=== PATIENT | female | born 1995 | race African-American/Black ===

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

== ENCOUNTER 2019-11-18 20:30 | Emergency (ER) | payer SELFPAY ==
[~2019-11-18] VITALS: Ht 180.3 cm; Wt 65.8 kg
[2019-11-18 21:03] LABS: BILIRUBIN,URINE NEGATIVE (NEG); CLARITY,URINE CLOUDY; COLOR,URINE YELLOW; NITRITE,URINE NEGATIVE (NEG); PROTEIN,URINE NEGATIVE (NEG-TRACE); UROBILINOGEN,URINE 0.2 mg/dL (0.2 mg/dL)
[2019-11-18 21:09] LABS: SQUAMOUS EPITHELIAL CELL,UR MANY /LPF
[2019-11-18 21:10] LABS: BACTERIA,URINE MOD /HPF (0-FEW); RBC,URINE 0 /HPF (0-2); WBC,URINE TNTC /HPF (0-4)
[2019-11-18 21:12] LABS: TRICHOMONAS,URINE PRESENT
[2019-11-18 21:15] LABS: INFLUENZA A PATIENT NEGATIVE (NEGATIVE); INFLUENZA B PATIENT NEGATIVE (NEGATIVE)
[2019-11-18] MEDS ORDERED: CEPH500T PO (21:42)
--- NOTE | 2019-11-18 21:42 | PHYS DOC ---
Past Medical History Past Medical History: No Pertinent History Past Surgical History: Other Additional Past Surgical Histo: FALOPIAN TUBE REMOVED Alcohol Use: Occasionally Drug Use: Marijuana Adult General Chief Complaint Chief Complaint: FLU SYMPTOM HPI HPI Patient is a 24 year old female 2 para 1 currently 13 weeks presenting to the ED today complaining of nausea, vomiting, diarrhea, chills and body aches, symptoms began today. Patient denies any hematemesis or melena. Denies any vaginal bleeding. She reports she recently moved to [place] and does not have an ASSISTANT SHIFT SUPERVISOR. Review of Systems Review of Systems Constitutional: Denies fever or chills [] Eyes: Denies change in visual acuity, redness, or eye pain [] HENT: Denies nasal congestion or sore throat [] Respiratory: Denies cough or shortness of breath [] Cardiovascular: No additional information not addressed in HPI [] GI: Report , nausea and vomiting, diarrhea. Denies abdominal pain, bloody stools diarrhea [] : Denies dysuria or hematuria [] Musculoskeletal: Denies back pain or joint pain [] Integument: Denies rash or skin lesions [] Neurologic: Denies headache, focal weakness or sensory changes [] All other systems were reviewed and found to be within normal limits, except as documented in this note. Current Medications Current Medications Current Medications Medications (Trade) Dose Ordered Sig/Moira Start Time Stop Time Status Last Admin Dose Admin Acetaminophen (Tylenol) 1,000 mg 1X ONCE 11/18/19 22:00 11/18/19 22:01 Azithromycin (Zithromax) 1,000 mg 1X ONCE 11/18/19 22:00 11/18/19 22:01 Ceftriaxone Sodium (Rocephin Im) 250 mg 1X ONCE 11/18/19 22:00 11/18/19 22:01 Metronidazole (Flagyl) 2,000 mg 1X ONCE 11/18/19 22:00 11/18/19 22:01 Promethazine HCl (Phenergan) 12.5 mg 1X ONCE 11/18/19 22:00 11/18/19 22:01 Allergies Allergies Allergies Coded Allergies Type Severity Reaction Last Updated Verified No Known Drug Allergies 11/12/16 No Physical Exam Physical Exam Constitutional: Well developed, well nourished, no acute distress, non-toxic appearance. [] HENT: Normocephalic, atraumatic, bilateral external ears normal, oropharynx moist, no oral exudates, nose normal. [] Eyes: PERRLA, EOMI, conjunctiva normal, no discharge. [] Neck: Normal range of motion, no tenderness, supple, no stridor. [] Cardiovascular:Heart rate regular rhythm, no murmur [] Lungs & Thorax: Bilateral breath sounds clear to auscultation [] Abdomen: Bowel sounds normal, soft, no tenderness, no masses, no pulsatile masses. [] Skin: Warm, dry, no erythema, no rash. [] Back: No tenderness, no CVA tenderness. [] Extremities: No tenderness, no cyanosis, no clubbing, ROM intact, no edema. [] Neurologic: Alert and oriented X 3, normal motor function, normal sensory function, no focal deficits noted. [] Psychologic: Flat affect, has been on the phone complaining about her symptoms Current Patient Data Vital Signs Vital Signs Date Time Temp Pulse Resp B/P (MAP) Pulse Ox O2 Delivery O2 Flow Rate FiO2 11/18/19 20:39 97.4 118 24 152/80 (104) 97 Room Air 97.4 Lab Values Laboratory Tests Test 11/18/19 20:46 11/18/19 20:49 Urine Collection Type Unknown Urine Color Yellow Urine Clarity Cloudy Urine pH 6.0 Urine Specific Tiller >=1.030 Urine Protein Negative mg/dL (NEG-TRACE) Urine Glucose (UA) Negative mg/dL (NEG) Urine Ketones (Stick) Trace mg/dL (NEG) Urine Blood Negative (NEG) Urine Nitrite Negative (NEG) Urine Bilirubin Negative (NEG) Urine Urobilinogen Dipstick 0.2 mg/dL (0.2 mg/dL) Urine Leukocyte Esterase Large (NEG) Urine RBC 0 /HPF (0-2) Urine WBC Tntc /HPF (0-4) Urine Squamous Epithelial Cells Many /LPF Urine Bacteria Mod /HPF (0-FEW) Urine Mucus Marked /LPF Urine Trichomonas Present Influenza Type A Antigen Negative (NEGATIVE) Influenza Type B Antigen Negative (NEGATIVE) EKG EKG [] Radiology/Procedures Radiology/Procedures [] Course & Med Decision Making Course & Med Decision Making Pertinent Labs and Imaging studies reviewed. (See chart for details) This is a 24-year-old female patient 2 para 1 currently 13 weeks presenting with nausea vomiting diarrhea and body aches chills that began today. Patient is afebrile. Negative influenza A or B. Urine analysis is positive for Trichomonas and urinary tract infection. She was given the standard STD treatment in the ED, given promethazine for her nausea and vomiting, discharged with cephalexin and Compazine. Follow-up with an ASSISTANT SHIFT SUPERVISOR we provided. Amaury Disclaimer Dragon Disclaimer This electronic medical record was generated, in whole or in part, using a voice recognition dictation system. Departure Departure Impression: Primary Impression: Urinary tract infection during Additional Impressions: Trichomonas vaginitis Vomiting and diarrhea Disposition: HOME, SELF-CARE Condition: STABLE Referrals: NO PCP (PCP) WILLIAM GAMA MD Follow up in the course of next week Patient Instructions: Diarrhea, [id number], Nausea and Vomiting, [id number], - Urinary Tract Infection, Trichomoniasis Additional Instructions: You were evaluated in the ER, you tested positive for Trichomonas. You are also and have urinary tract infection. Trichomonas is a sexually transmitted disease. You were treated in the emergency room, you must contact all your sex partners and let them know you have Trichomonas and ask them to seek treatment too. You can take Tylenol as needed for pain. You must complete your antibiotics for UTI. We provided you an ASSISTANT SHIFT SUPERVISOR to follow-up for your . Scripts Prochlorperazine Maleate (Compazine) 10 Mg Tablet 1 TAB PO Q6HRS for 7 Days, #28 TAB 0 Refills Prov: JEANETTE BRAN APRN 11/18/19 Cephalexin (CEPHALEXIN) 500 Mg Tablet 1 TAB PO BID, #14 TAB Prov: JEANETTE BRAN APRN 11/18/19 Problem Qualifiers Primary Impression: Urinary tract infection during Trimester: second trimester Qualified Codes: O23.42 - Unspecified infection of urinary tract in , second trimester JEANETTE BRAN APRN Nov 18, 2019 21:42
[2019-11-18] MEDS ORDERED: PROC10TA57 PO (21:43)
[2019-11-18 21:58] VITALS: BP 150/84
[2019-11-18] MEDS ORDERED: PROMETHAZINE 12.5 MG TABLET. PO ONE (22:00)
[2019-11-18] MEDS ORDERED: metroNIDAZOLE 500 MG TABLET PO ONE (22:00)
[2019-11-18] MEDS ORDERED: AZITHROMYCIN 250 MG TABLET. PO ONE (22:00)
[2019-11-18] MEDS ORDERED: cefTRIAXone IM 250 MG VIAL IM ONE (22:00)
[2019-11-18] MEDS ORDERED: ACETAMINOPHEN 500 MG TABLET PO ONE (22:00)
== END 2019-11-18 22:00 | disposition home or self-care (01) ==
LOC: ER 20:30
DX: O23.41 Unspecified infection of urinary tract in pregnancy, first trimester (principal); O98.311 Other infections with a predominantly sexual mode of transmission complicating pregnancy, first trimester; A59.01 Trichomonal vulvovaginitis; O21.9 Vomiting of pregnancy, unspecified; F12.90 Cannabis use, unspecified, uncomplicated; Z98.890 Other specified postprocedural states; Z3A.13 13 weeks gestation of pregnancy
CPT/HCPCS: 81001; 87804; 96372; 99284; J0696; Q0144; Q0169

== ENCOUNTER 2020-05-13 22:27 | Emergency (ER) | payer SELFPAY ==
[~2020-05-13] VITALS: Ht 180.3 cm; Wt 69.5 kg
[~2020-05-13 22:27] MED LIST: CEPH500T PO; PROC10TA57 PO
[2020-05-13] MEDS ORDERED: IV NORMAL SALINE 1000ML BAG 1,000 ML IV ONE (23:00)
[2020-05-13] MEDS ORDERED: KETOROLAC 30 MG/ML VIAL. IVP ONE (23:00)
--- NOTE | 2020-05-13 23:05 | PHYS DOC ---
Past Medical History Past Medical History: No Pertinent History (NASH NUNEZ APRN) Past Surgical History: Appendectomy, Other Additional Past Surgical Histo: FALOPIAN TUBE REMOVED (NASH NUNEZ APRN) Smoking Status: Never Smoker Alcohol Use: Occasionally Drug Use: Marijuana (NASH NUNEZ APRN) General Adult EDM: Chief Complaint: ABDOMINAL PAIN HPI: HPI: Patient is a 24 year old female patient who presents with right lower quadrant pain. Patient states that she recently had a miscarriage, 05/01/20 after 7-week . States this been found when she was at [facility] the day, complaints of abdominal pain. States she was started on antibiotics for a UTI at that time, and continued to have some discomfort. States today she had gone to [facility], had ultrasound performed, noting a large blood clot in her uterus, as well as a enlarged ovarian cyst. States she had again gotten a prescription for Macrobid for UTI, and also had received a shot of Rocephin there. States she is continued some discomfort, with a fever tonight, and is concerned came to the ER. Denies any nausea, vomiting, does states she has been have 2 bowel movements than normal recently, however she does report bowel movement today patient A1 SA1 from November 2019. Denies concern for STD. Denies vaginal discharge. States she has had a small mount of vaginal bleeding today (NASH NUNEZ APRN) Review of Systems: Review of Systems: Constitutional: Denies chills, states fever tonight.] Eyes: Denies change in visual acuity. [] HENT: Denies nasal congestion or sore throat. [] Respiratory: Denies cough or shortness of breath. [] Cardiovascular: Denies chest pain or edema. [] GI: Denies nausea, vomiting, bloody stools or diarrhea. Reports abdominal pain, right lower quadrant worse. [] : Reports dysuria, burning with urination. [] Musculoskeletal: Denies back pain or joint pain. [] Integument: Denies rash. [] Neurologic: Denies headache, focal weakness or sensory changes. [] Endocrine: Denies polyuria or polydipsia. [] Lymphatic: Denies swollen glands. [] Psychiatric: Denies depression or anxiety. [] (NASH NUNEZ APRN) Heart Score: Risk Factors: Risk Factors: DM, Current or recent (<one month) smoker, HTN, HLP, family history of CAD, obesity. Risk Scores: Score 0 - 3: 2.5% MACE over next 6 weeks - Discharge Home Score 4 - 6: 20.3% MACE over next 6 weeks - Admit for Clinical Observation Score 7 - 10: 72.7% MACE over next 6 weeks - Early Invasive Strategies (NASH NUNEZ APRN) Allergies: Allergies: Allergies Coded Allergies Type Severity Reaction Last Updated Verified No Known Drug Allergies 11/12/16 No (NASH NUNEZ APRN) Physical Exam: PE: Constitutional: Well developed, well nourished, no acute distress, non-toxic ap pearance. [] Eyes: PERRLA, EOMI, conjunctiva normal, no discharge. [] Neck: Normal range of motion, no tenderness, supple, no stridor. [] Cardiovascular:Heart rate regular rhythm, no murmur [] Lungs & Thorax: Bilateral breath sounds clear to auscultation [] Abdomen: Bowel sounds normal, soft, tenderness to RLQ, no masses, no pulsatile masses. negative heel-jar test. Negative Rovsig. [] Skin: Warm, dry, no erythema, no rash. [] Back: No tenderness, no CVA tenderness. [] Extremities: No tenderness, no cyanosis, no clubbing, ROM intact, no edema. [] Neurologic: Alert and oriented X 3, normal motor function, normal sensory function, no focal deficits noted. [] Psychologic: Affect normal, judgement normal, mood normal. [] (NASH NUNEZ APRN) Current Patient Data: Vital Signs: Vital Signs Date Time Temp Pulse Resp B/P (MAP) Pulse Ox O2 Delivery O2 Flow Rate FiO2 05/13/20 22:40 100.5 100 20 135/68 (90) 99 Room Air 100.5 (NASH NUNEZ APRN) EKG: EKG: [] (NASH NUNEZ APRN) Radiology/Procedures: Radiology/Procedures: [] (NASH NUNEZ APRN) Course & Med Decision Making: Course & Med Decision Making Pertinent Labs and Imaging studies reviewed. (See chart for details) Following Toradol, patient reports she is pain free. [] After reviewing labs with findings, consideration for PID due to unilateral pain, fever, STD noted on lab testing. Will treat for her Trich which she prefers to do at home after she has eaten. Also provide prescription for doxycycline. She is to hold her Macrobid which was prescribed earlier and not fill that prescription. Patient agreed with this plan of care Care Transferred to Dr Sanchez @ 0028 awaiting imaging results (NASH NUNEZ APRN) Course & Med Decision Making Discussed CT imaging with patient. Patient advised me that she presents to ER for continues pain. Patient with recent miscarriage. Patient had 2 [facility] pelvis today--- [facility] and 2nd at [facility]. Patient with be Rx pain medication and instructions [facility]. (NARA SANCHEZ I DO) Dragon Disclaimer: Amaury Disclaimer: This electronic medical record was generated, in whole or in part, using a voice recognition dictation system. (NASH NUNEZ APRN) Departure Departure Impression: Primary Impression: Trichomonas vaginitis Additional Impressions: Pelvic inflammatory disease, acute Pelvic pain Disposition: 01 HOME, SELF-CARE Referrals: NO PCP (PCP) Patient Instructions: Trichomoniasis Additional Instructions: As we discussed, continue to take Tylenol or ibuprofen for your discomfort. You may take 600 to 800 mg of ibuprofen every 8 hours, with your next dose at 6 AM tomorrow. You may take Tylenol, 650 to 1000 mg, every 6 hours as well. Make sure you are using condoms for the next 2 weeks. Make sure your partner knows that they need to be treated for trichomoniasis before further unprotected inte rcourse. Your partner can contact the health department for this treatment, letting them know that they have had an exposure. As we discussed, take the 4 pills at the same time after eating some food to decrease the chance that it will upset your stomach. The other medication we are prescribing you is another antibiotic, take it twice a day, for the entire 10 days, Even if you start to feel better. Do not start the prescription from [facility], as this medication will not help your conditions today. Scripts Metronidazole (METRONIDAZOLE) 500 Mg Tablet 500 MG PO ONCE, #4 TAB Take all 4 pills at the same time, after a meal. Avoid Alcohol for 48 hours after taking the medication Prov: NASH NUNEZ APRN 05/14/20 Doxycycline Hyclate (DOXYCYCLINE HYCLATE) 100 Mg Capsule 1 CAP PO BID, #20 CAP Prov: NASH NUNEZ APRN 05/14/20 Justicifation of Admission Dx: Justifications for Admission: Justification of Admission Dx: N/A (NASH NUNEZ APRN) NASH NUNEZ APRN May 13, 2020 23:05 NARA SANCHEZ DO May 14, 2020 01:34
[2020-05-13 23:16] LABS: BASO % 0 % (0-3); EOS # 0.1 x10^3/uL (0.0-0.7); EOS % 1 % (0-3); HEMATOCRIT 31.5 % (36.0-47.0); HEMOGLOBIN 10.7 g/dL (12.0-15.5); LYMPH # 1.1 x10^3/uL (1.0-4.8); LYMPH % 8 % (24-48); MEAN CORPUSCULAR HEMOGLOBIN 27 pg (25-35); MEAN CORPUSCULAR HGB CONC 34 g/dL (31-37); MEAN CORPUSCULAR VOLUME 80 fL (79-100); MONO # 1.2 x10^3/uL (0.0-1.1); MONO % 9 % (0-9); NEUT % 82 % (31-73); PLATELET COUNT 305 x10^3/uL (140-400); RED BLOOD COUNT 3.95 x10^6/uL (3.50-5.40); RED CELL DISTRIBUTION WIDTH 13.1 % (11.5-14.5); WHITE BLOOD COUNT 13.3 x10^3/uL (4.0-11.0)
[2020-05-13 23:25] LABS: CALCIUM 8.5 mg/dL (8.5-10.1); CREATININE 1.2 mg/dL (0.6-1.0); POTASSIUM 3.3 mmol/L (3.5-5.1)
[2020-05-13] MEDS ORDERED: CONTRAST GIVEN. MC PRN (23:30)
[2020-05-13] MEDS ORDERED: IOHEXOL 300 MG/ML 100ML VIAL. IV ONE (23:30)
[2020-05-13 23:31] LABS: ALBUMIN 3.1 g/dL (3.4-5.0); ALBUMIN/GLOBULIN RATIO 0.8 (1.0-1.7); TOTAL BILIRUBIN 0.7 mg/dL (0.2-1.0); TOTAL PROTEIN 7.2 g/dL (6.4-8.2)
[2020-05-13 23:32] LABS: BILIRUBIN,URINE SMALL (NEG); CLARITY,URINE CLEAR; COLOR,URINE YELLOW; NITRITE,URINE NEGATIVE (NEG); PH,URINE 6.5 (<5.0-8.0); PROTEIN,URINE 30 mg/dL (NEG-TRACE)
[2020-05-13 23:37] LABS: SQUAMOUS EPITHELIAL CELL,UR MANY /LPF
[2020-05-13 23:38] LABS: TRICHOMONAS,URINE PRESENT; WBC,URINE >40 /HPF (0-4)
[2020-05-13 23:39] LABS: BACTERIA,URINE MANY /HPF (0-FEW)
[2020-05-14] MEDS ORDERED: METR-34 PO (00:27)
[2020-05-14] MEDS ORDERED: DOXY100C2 PO (00:27)
--- NOTE | 2020-05-14 00:58 | RAD ---
CT abdomen pelvis with contrast. HISTORY: Right lower quadrant pain, fever CT scan the abdomen pelvis was done using 75 mL's Omnipaque 300 contrast. Lung bases are clear. There is no effusion. A liver lesion is not identified. Spleen and adrenal glands are normal. A pancreatic lesion is not identified. There is no mass or hydronephrosis in the kidneys. Gallbladder is contracted. Bowel pattern is unremarkable. There is possible fluid collection in the right pelvis. A hydrosalpinx is possible. There are unopacified bowel loops which make evaluation more difficult. Left ovary appears normal. Prominent ovarian cyst is possible. IMPRESSION: 1. Right adnexal hypodense collection possible hydrosalpinx, dilated unopacified bowel loop is possible, an irregular ovarian cyst is possible. 2. No other abdominal or pelvic mass noted PQRS Compliance Statement: One or more of the following individualized dose reduction techniques were utilized for this examination: 1. Automated exposure control 2. Adjustment of the mA and/or kV according to patient size 3. Use of iterative reconstruction technique Electronically signed by: Juan David Singleton MD (05/14/2020 12:55 AM) [id number]
[2020-05-14 01:09] VITALS: BP 102/53
[2020-05-14] MEDS ORDERED: TRAM-48 PO (01:35)
== END 2020-05-14 01:30 | disposition home or self-care (01) ==
LOC: ER 22:27
DX: A59.01 Trichomonal vulvovaginitis (principal); N73.9 Female pelvic inflammatory disease, unspecified; R10.2 Pelvic and perineal pain; R50.9 Fever, unspecified; F12.90 Cannabis use, unspecified, uncomplicated; Z90.89 Acquired absence of other organs; Z98.890 Other specified postprocedural states
CPT/HCPCS: 36415; 74177; 80053; 81001; 83605; 85025; 87086; 96374; 99285; J1885; J7030; Q9967

== ENCOUNTER 2020-05-14 11:33 | Inpatient (IN) | payer SELFPAY ==
[~2020-05-14] VITALS: Ht 180.3 cm; Wt 69.5 kg
[~2020-05-14 11:33] MED LIST changes: +DOXY100C2 PO; +METR-34 PO; +TRAM-48 PO
[2020-05-14] MEDS ORDERED: ACETAMINOPHEN 500 MG TABLET PO ONE (12:30)
[2020-05-14] MEDS ORDERED: KETOROLAC 30 MG/ML VIAL. IVP ONE (12:30)
[2020-05-14] MEDS ORDERED: IV NORMAL SALINE 1000ML BAG 1,000 ML IV ONE ×2 (12:30→13:45)
[2020-05-14] MEDS ORDERED: cefTRIAXone IV Push 1 GM VIAL. IVP ONE (12:30)
--- NOTE | 2020-05-14 12:54 | EKG ---
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
[2020-05-14 13:00] LABS: BASO # 0.1 x10^3/uL (0.0-0.2); BASO % 1 % (0-3); EOS % 0 % (0-3); HEMOGLOBIN 10.3 g/dL (12.0-15.5); LYMPH # 0.2 x10^3/uL (1.0-4.8); LYMPH % 2 % (24-48); MEAN CORPUSCULAR HEMOGLOBIN 27 pg (25-35); MEAN CORPUSCULAR HGB CONC 34 g/dL (31-37); MEAN CORPUSCULAR VOLUME 80 fL (79-100); MONO # 0.2 x10^3/uL (0.0-1.1); MONO % 2 % (0-9); NEUT # 8.3 x10^3/uL (1.8-7.7); NEUT % 95 % (31-73); PLATELET COUNT 303 x10^3/uL (140-400); RED BLOOD COUNT 3.77 x10^6/uL (3.50-5.40); RED CELL DISTRIBUTION WIDTH 13.2 % (11.5-14.5); WHITE BLOOD COUNT 8.7 x10^3/uL (4.0-11.0)
[2020-05-14 13:07] LABS: CALCIUM 8.4 mg/dL (8.5-10.1); CREATININE 0.9 mg/dL (0.6-1.0); GFR 94.7; POTASSIUM 3.1 mmol/L (3.5-5.1)
[2020-05-14 13:13] LABS: ALBUMIN 2.9 g/dL (3.4-5.0); ALBUMIN/GLOBULIN RATIO 0.8 (1.0-1.7); TOTAL BILIRUBIN 0.6 mg/dL (0.2-1.0); TOTAL PROTEIN 6.7 g/dL (6.4-8.2)
[2020-05-14 13:22] LABS: % BANDS 3 % (0-9); % LYMPHS 2 % (24-48); % MONOS 2 % (0-10); % SEGS 93 % (35-66); PLT ESTIMATE ADEQUATE (ADEQUATE)
[2020-05-14] MEDS ORDERED: POTASSIUM CHLORIDE 20 MEQ TABLET.ER. PO ONE ×2 (13:37→13:45)
[2020-05-14 13:39] LABS: BILIRUBIN,URINE SMALL (NEG); CLARITY,URINE CLOUDY; COLOR,URINE AMBER; NITRITE,URINE NEGATIVE (NEG); PROTEIN,URINE 100 mg/dL (NEG-TRACE)
--- NOTE | 2020-05-14 13:43 | PHYS DOC ---
Past Medical History Past Medical History: STD, Other Additional Past Medical Histor: Trichomonas; miscarriages Past Surgical History: Appendectomy, Other Additional Past Surgical Histo: FALOPIAN TUBE REMOVED Smoking Status: Never Smoker Alcohol Use: Occasionally Drug Use: Marijuana General Adult EDM: Chief Complaint: ABDOMINAL PAIN HPI: HPI: Patient is a 24 year old female who presents with complaints of right lower abdominal pain. Patient reports being seen here earlier this morning and having a CT scan done of her abdomen. Patient reports being told that she had a cyst on her right ovary. Patient states that she was diagnosed with PID and Trichomonas. Patient was given prescriptions and discharged to home, however she states she was unable to fill her medications today. Patient states she returned to the ER today because at approximately 6:00 this morning she woke up with increasing pain to her right lower quadrant. Patient states she took 1000 mg of Tylenol which did not help. Patient also states that her temperature this morning at 6:00 AM was 105. Patient states she had a miscarriage on 04/27/20. Patient also states she awoke this morning with a headache. She rates her headache and her abdominal pain a 10 out of 10 when she is up moving around. Otherwise her pain is a 5-6 out of 10 when she is laying down on her right side patient denies nausea vomiting or diarrhea, or constipation. Review of Systems: Review of Systems: Constitutional: Reports fever and chills. [] Eyes: Denies change in visual acuity. [] HENT: Denies nasal congestion or sore throat. [] Respiratory: Denies cough or shortness of breath. [] Cardiovascular: Denies chest pain or edema. [] GI: Denies abdominal pain, nausea, vomiting, bloody stools or diarrhea. [] : Denies dysuria. [] Musculoskeletal: Mild right sided lower back pain , denies joint pain. [] Integument: Denies rash. [] Neurologic: Reports frontal headache, denies focal weakness or sensory changes. [] Endocrine: Denies polyuria or polydipsia. [] Lymphatic: Denies swollen glands. [] Psychiatric: Denies depression or anxiety. [] Heart Score: Risk Factors: Risk Factors: DM, Current or recent (<one month) smoker, HTN, HLP, family history of CAD, obesity. Risk Scores: Score 0 - 3: 2.5% MACE over next 6 weeks - Discharge Home Score 4 - 6: 20.3% MACE over next 6 weeks - Admit for Clinical Observation Score 7 - 10: 72.7% MACE over next 6 weeks - Early Invasive Strategies Family History: Family History: No significant family history related to this visit Current Medications: Current Medications Medications (Trade) Dose Ordered Sig/Moira Start Time Stop Time Status Last Admin Dose Admin Acetaminophen (Tylenol) 1,000 mg 1X ONCE 05/14/20 12:30 05/14/20 12:31 DC 05/14/20 12:52 1,000 MG Ceftriaxone Sodium (Rocephin) 1 gm 1X ONCE 05/14/20 12:30 05/14/20 12:31 DC 05/14/20 12:52 1 GM Ketorolac Tromethamine (Toradol 30mg Vial) 30 mg 1X ONCE 05/14/20 12:30 05/14/20 12:31 DC 05/14/20 12:52 30 MG Sodium Chloride 1,000 ml @ 1,000 mls/hr 1X ONCE 05/14/20 12:30 05/14/20 13:29 05/14/20 12:51 1,000 MLS/HR Allergies: Allergies: Allergies Coded Allergies Type Severity Reaction Last Updated Verified No Known Drug Allergies 11/12/16 No Physical Exam: PE: Constitutional: Well developed, well nourished, no acute distress, non-toxic appearance. Lying on her right side during most of the exam HENT: Normocephalic, atraumatic, bilateral external ears normal, oropharynx moist, no oral exudates, nose normal. [] Eyes: PERRLA, EOMI, conjunctiva normal, no discharge. [] Neck: Normal range of motion, no tenderness, supple, no stridor. [] Cardiovascular:Heart rate regular rhythm, no murmur, tachycardia at 130 rate. Lungs & Thorax: Bilateral breath sounds clear to auscultation [] Abdomen: Bowel sounds normal, soft, tenderness to the right lower quadrant with palpation, no masses, no pulsatile masses. [] Skin: Warm, dry, no erythema, no rash. [] Back: Right lower back tenderness, no CVA tenderness. [] Extremities: No tenderness, no cyanosis, no clubbing, ROM intact, no edema. [] Neurologic: Alert and oriented X 3, normal motor function, normal sensory function, no focal deficits noted. Frontal headache Psychologic: Affect normal, judgement normal, mood normal. [] Current Patient Data: Labs: Laboratory Tests Test 05/14/20 12:40 White Blood Count 8.7 x10^3/uL (4.0-11.0) Red Blood Count 3.77 x10^6/uL (3.50-5.40) Hemoglobin 10.3 g/dL (12.0-15.5) L Hematocrit 30.0 % (36.0-47.0) L Mean Corpuscular Volume 80 fL (79-100) Mean Corpuscular Hemoglobin 27 pg (25-35) Mean Corpuscular Hemoglobin Concent 34 g/dL (31-37) Red Cell Distribution Width 13.2 % (11.5-14.5) Platelet Count 303 x10^3/uL (140-400) Neutrophils (%) (Auto) 95 % (31-73) H Lymphocytes (%) (Auto) 2 % (24-48) L Monocytes (%) (Auto) 2 % (0-9) Eosinophils (%) (Auto) 0 % (0-3) Basophils (%) (Auto) 1 % (0-3) Neutrophils # (Auto) 8.3 x10^3/uL (1.8-7.7) H Lymphocytes # (Auto) 0.2 x10^3/uL (1.0-4.8) L Monocytes # (Auto) 0.2 x10^3/uL (0.0-1.1) Eosinophils # (Auto) 0.0 x10^3/uL (0.0-0.7) Basophils # (Auto) 0.1 x10^3/uL (0.0-0.2) Platelet Estimate Pending Sodium Level 137 mmol/L (136-145) Potassium Level 3.1 mmol/L (3.5-5.1) L Chloride Level 101 mmol/L (98-107) Carbon Dioxide Level 23 mmol/L (21-32) Anion Gap 13 (6-14) Blood Urea Nitrogen 11 mg/dL (7-20) Creatinine 0.9 mg/dL (0.6-1.0) Estimated GFR (Cockcroft-Gault) 94.7 BUN/Creatinine Ratio 12 (6-20) Glucose Level 111 mg/dL (70-99) H Calcium Level 8.4 mg/dL (8.5-10.1) L Total Bilirubin 0.6 mg/dL (0.2-1.0) Aspartate Amino Transferase (AST) 16 U/L (15-37) Alanine Aminotransferase (ALT) 20 U/L (14-59) Alkaline Phosphatase 81 U/L (46-116) Total Protein 6.7 g/dL (6.4-8.2) Albumin 2.9 g/dL (3.4-5.0) L Albumin/Globulin Ratio 0.8 (1.0-1.7) L Laboratory Tests 05/14/20 12:40 Laboratory Tests 05/14/20 12:40 Vital Signs: Vital Signs Date Time Temp Pulse Resp B/P (MAP) Pulse Ox O2 Delivery O2 Flow Rate FiO2 05/14/20 11:33 103.2 144 20 104/54 (71) 98 Room Air 103.2 EKG: EKG: EKG performed in room at 11:[address] Balderrama sinus tachycardia rate 150 no STEMI noted Radiology/Procedures: Radiology/Procedures: PROCEDURE: PELVIS W/TV Examination: PELVIS W/TV History: Reason: fever, rt abdomen pain, abnormal ct scan / Spl. Instructions: / History: Comparison/Correlation: 05/13/2020 CT abdomen and pelvis with contrast Findings: Transabdominal and transvaginal pelvic ultrasound exams were performed. Transvaginal technique was utilized better assessed adnexal structures. Uterus measures 11.2 cm x 6.2 cm x 6.7 cm. Myometrium is unremarkable. Endometrial thickness of 1 cm is present. Right ovary measures 4 cm x 1.8 cm x 2.7 cm. Left ovary is obscured by bowel gas. Complex collection which may relate to a ruptured cyst is present adjacent to the right ovary measuring 5.6 cm x 4.7 cm x 2.8 cm. Flow is notable involving this structure. Right hydrosalpinx is questioned. Impression: Indeterminate complex collection adjacent to the right ovary. Possibility of right hydrosalpinx is raised. If ectopic gestation is a concern, correlate with serial beta hCG and possibly follow-up ultrasound. Electronically signed by: Sylvester Hudson MD (05/14/2020 1:56 PM) [id number] DICTATED and SIGNED BY: SYLVESTER HUDSON MD DATE: 05/14/20 1356 Impression: 24-year-old female patient presents to the ER today with complaints of fever and right lower abdomen pain. Patient states she woke up approximately 6:00 this m orning with a frontal headache and increasing right lower abdomen pain. Patient reports she was seen here earlier this morning at approximately 2:00 AM and diagnosed with PID and Trichomonas, sent home with prescriptions for doxycycline Flagyl and Ultram. Patient states she was unable to get her prescriptions filled. Patient states she was concerned about her continuing abdominal pain and increased fever so she came into the ER. Patient reports having a miscarriage on May 01, 2020 while she was staying in a hotel room. Patient states she was not aware that she was until she had her miscarriage on the . Patient states she thinks she may have been about 7 weeks . Patient is G3, P1 TAB 15 November 2019, SAB 1 May 01, 2020. The ultrasound read by radiologist concerning a ectopic gestation versus a ruptured cyst of the right ovary, this was correlated with a beta hCG of 408. Upon arrival patient was initially tachycardic at 150. Patient was treated with 2 L of normal saline. Patient's pain of a 9/10 was treated with 30 mg IV Toradol, this helped her pain which the patient stated her headache was relieved and her abdominal pain was down to a 2 or 3/10. [employer] specialist Dr. Bean consulted who agreed to admit to her service on the [employer]/ floor. Reviewed concerning findings with patient and recommendation of admission to floor patient is agreea ble to this. Patient will be admitted to [facility]/ unit. Course & Med Decision Making: Course & Med Decision Making Pertinent Labs and Imaging studies reviewed. (See chart for details) [] Amaury Disclaimer: Amaury Disclaimer: This electronic medical record was generated, in whole or in part, using a voice recognition dictation system. Departure Departure Impression: Primary Impression: Abdominal pain Qualified Codes: R10.31 - Right lower quadrant pain Disposition: ADMITTED INPATIENT Admitting Physician: JAY (DR. SALAZAR [employer]) Condition: STABLE (ERASED) Referrals: NO PCP (PCP) Justicifation of Admission Dx: Justifications for Admission: Justification of Admission Dx: Yes Sepsis: Infection BERNARDO TINSLEY APRN May 14, 2020 13:43
[2020-05-14 13:53] LABS: AMORPHOUS SEDIMENT,UR PRESENT /HPF; SQUAMOUS EPITHELIAL CELL,UR FEW /LPF
[2020-05-14 13:54] LABS: BACTERIA,URINE FEW /HPF (0-FEW); WBC,URINE >40 /HPF (0-4)
--- NOTE | 2020-05-14 13:59 | RAD ---
Examination: PELVIS W/TV History: Reason: fever, rt abdomen pain, abnormal ct scan / Spl. Instructions: / History: Comparison/Correlation: 05/13/2020 CT abdomen and pelvis with contrast Findings: Transabdominal and transvaginal pelvic ultrasound exams were performed. Transvaginal technique was utilized better assessed adnexal structures. Uterus measures 11.2 cm x 6.2 cm x 6.7 cm. Myometrium is unremarkable. Endometrial thickness of 1 cm is present. Right ovary measures 4 cm x 1.8 cm x 2.7 cm. Left ovary is obscured by bowel gas. Complex collection which may relate to a ruptured cyst is present adjacent to the right ovary measuring 5.6 cm x 4.7 cm x 2.8 cm. Flow is notable involving this structure. Right hydrosalpinx is questioned. Impression: Indeterminate complex collection adjacent to the right ovary. Possibility of right hydrosalpinx is raised. If ectopic gestation is a concern, correlate with serial beta hCG and possibly follow-up ultrasound. Electronically signed by: Sylvester Alejo MD (05/14/2020 1:56 PM) [id number]
[2020-05-14 15:03] LABS: U PREG PATIENT POSITIVE (NEG)
[2020-05-14] MEDS ORDERED: ONDANSETRON PF 4 MG/2 ML VIAL. IV PRN (16:15)
[2020-05-14] MEDS ORDERED: IV DEXTROSE 5%-LACT RINGERS 1,000 ML IV ONE (16:15)
[2020-05-14] MEDS: CLINDAMYCIN 600MG PREMIX 50 ML IV SCH ×2 (16:49→21:47)
[2020-05-14 20:40] VITALS: BP 106/53
[2020-05-14] MEDS ORDERED: KETOROLAC 30 MG/ML VIAL. IVP SCH (22:00)
[2020-05-14 23:00] VITALS: BP 109/56
[2020-05-14] MEDS: ACETAMINOPHEN 325 MG TABLET. PO PRN (23:19)
[2020-05-15] MEDS: CLINDAMYCIN 600MG PREMIX 50 ML IV SCH ×3 (05:26→22:05)
[2020-05-15] MEDS: KETOROLAC 30 MG/ML VIAL. IVP SCH ×4 (05:27→23:35)
[2020-05-15 05:45] VITALS: BP 108/46
[2020-05-15 07:00] VITALS: BP 96/52
--- NOTE | 2020-05-15 08:48 | PDOC ---
GENERAL General: 24yrs old lady admitted for intense Lower Abdominal Pain. She is had Miscarriage 05/01/20. but not sure. No vaginal bleeding. VITAL SIGNS Vital Signs/I&O: Vital Signs Date Time Temp Pulse Resp B/P (MAP) Pulse Ox O2 Delivery O2 Flow Rate FiO2 05/15/20 07:00 98.8 104 17 96/52 (67) 98 Room Air 98.8 I & O 05/14/20 05/14/20 05/15/20 15:00 23:00 07:00 Intake Total 2000 ml 50 ml 540 ml Balance 2000 ml 50 ml 540 ml ALLERGIES Allergies: Allergies Coded Allergies Type Severity Reaction Last Updated Verified No Known Drug Allergies 11/12/16 No MEDS Medications: Current Medications Medications (Trade) Dose Ordered Sig/Moira Route PRN Reason Start Time Stop Time Status Last Admin Dose Admin Acetaminophen (Tylenol) 1,000 mg 1X ONCE PO 05/14/20 12:30 05/14/20 12:31 DC 05/14/20 12:52 Ketorolac Tromethamine (Toradol 30mg Vial) 30 mg 1X ONCE IVP 05/14/20 12:30 05/14/20 12:31 DC 05/14/20 12:52 Ceftriaxone Sodium (Rocephin) 1 gm 1X ONCE IVP 05/14/20 12:30 05/14/20 12:31 DC 05/14/20 12:52 Sodium Chloride 1,000 ml @ 1,000 mls/hr 1X ONCE IV 05/14/20 12:30 05/14/20 13:29 DC 05/14/20 12:51 Potassium Chloride (Klor-Con) 40 meq 1X ONCE PO 05/14/20 13:45 05/14/20 13:46 DC 05/14/20 13:40 Sodium Chloride 1,000 ml @ 1,000 mls/hr 1X ONCE IV 05/14/20 13:45 05/14/20 14:44 DC 05/14/20 13:42 Dextrose/Lactated Ringer's 1,000 ml @ 125 mls/hr 1X ONCE IV 05/14/20 16:15 05/15/20 00:14 DC 05/14/20 16:49 Ketorolac Tromethamine (Toradol 30mg Vial) 30 mg Q8HRS IVP 05/14/20 22:00 05/14/20 22:49 DC 05/14/20 21:47 Clindamycin Phosphate 50 ml @ 100 mls/hr Q8HRS IV 05/14/20 16:30 05/15/20 05:26 Ketorolac Tromethamine (Toradol 30mg Vial) 30 mg Q6HRS IVP 05/15/20 06:00 05/20/20 05:59 05/15/20 05:27 Acetaminophen (Tylenol) 650 mg PRN Q6HRS PRN PO FEVER > 100.3'F 05/14/20 22:45 05/14/20 23:19 LAB Lab: Laboratory Tests Test 05/14/20 12:40 05/14/20 13:00 05/14/20 13:30 White Blood Count 8.7 x10^3/uL (4.0-11.0) Red Blood Count 3.77 x10^6/uL (3.50-5.40) Hemoglobin 10.3 g/dL (12.0-15.5) L Hematocrit 30.0 % (36.0-47.0) L Mean Corpuscular Volume 80 fL (79-100) Mean Corpuscular Hemoglobin 27 pg (25-35) Mean Corpuscular Hemoglobin Concent 34 g/dL (31-37) Red Cell Distribution Width 13.2 % (11.5-14.5) Platelet Count 303 x10^3/uL (140-400) Neutrophils (%) (Auto) 95 % (31-73) H Lymphocytes (%) (Auto) 2 % (24-48) L Monocytes (%) (Auto) 2 % (0-9) Eosinophils (%) (Auto) 0 % (0-3) Basophils (%) (Auto) 1 % (0-3) Neutrophils # (Auto) 8.3 x10^3/uL (1.8-7.7) H Lymphocytes # (Auto) 0.2 x10^3/uL (1.0-4.8) L Monocytes # (Auto) 0.2 x10^3/uL (0.0-1.1) Eosinophils # (Auto) 0.0 x10^3/uL (0.0-0.7) Basophils # (Auto) 0.1 x10^3/uL (0.0-0.2) Segmented Neutrophils % 93 % (35-66) H Band Neutrophils % 3 % (0-9) Lymphocytes % 2 % (24-48) L Monocytes % 2 % (0-10) Platelet Estimate Adequate (ADEQUATE) Maternal Serum HCG Beta Subunit 408 mIU/mL (0-5) H Sodium Level 137 mmol/L (136-145) Potassium Level 3.1 mmol/L (3.5-5.1) L Chloride Level 101 mmol/L (98-107) Carbon Dioxide Level 23 mmol/L (21-32) Anion Gap 13 (6-14) Blood Urea Nitrogen 11 mg/dL (7-20) Creatinine 0.9 mg/dL (0.6-1.0) Estimated GFR (Cockcroft-Gault) 94.7 BUN/Creatinine Ratio 12 (6-20) Glucose Level 111 mg/dL (70-99) H Lactic Acid Level 1.2 mmol/L (0.4-2.0) Calcium Level 8.4 mg/dL (8.5-10.1) L Total Bilirubin 0.6 mg/dL (0.2-1.0) Aspartate Amino Transferase (AST) 16 U/L (15-37) Alanine Aminotransferase (ALT) 20 U/L (14-59) Alkaline Phosphatase 81 U/L (46-116) Total Protein 6.7 g/dL (6.4-8.2) Albumin 2.9 g/dL (3.4-5.0) L Albumin/Globulin Ratio 0.8 (1.0-1.7) L Urine Test Positive (NEG) Urine Collection Type Unknown Urine Color Candi Urine Clarity Cloudy Urine pH 6.0 (<5.0-8.0) Urine Specific [place] >=1.030 (1.000-1.030) Urine Protein 100 mg/dL (NEG-TRACE) Urine Glucose (UA) Negative mg/dL (NEG) Urine Ketones (Stick) 15 mg/dL (NEG) Urine Blood Large (NEG) Urine Nitrite Negative (NEG) Urine Bilirubin Small (NEG) Urine Urobilinogen Dipstick 1.0 mg/dL (0.2 mg/dL) Urine Leukocyte Esterase Large (NEG) Urine RBC 3-5 /HPF (0-2) Urine WBC >40 /HPF (0-4) Urine Squamous Epithelial Cells Few /LPF Urine Amorphous Sediment Present /HPF Urine Bacteria Few /HPF (0-FEW) Urine Mucus Mod /LPF Laboratory Tests 05/14/20 12:40 Laboratory Tests 05/14/20 12:40 ASSESSMENT & PLAN A&P Patient has Fever. Lower Abdominal Tenderness.christensen to RLQ. Uterus Normal in size. Will do Laparotomy to Ruleout Ectopic . Justicifation of Admission Dx: Justifications for Admission: Justification of Admission Dx: Yes Sepsis: Infection WILLIAM GAMA MD May 15, 2020 08:48
[2020-05-15] MEDS ORDERED: MORPHINE SULFATE 4 MG/ML VIAL. IV PRN (09:00)
[2020-05-15] MEDS: IV DEXTROSE 5%-LACT RINGERS 1,000 ML IV SCH ×2 (09:05→17:03)
[2020-05-15] MEDS ORDERED: IV RINGERS,LACTATED 1000ML 1,000 ML IV SCH (10:17)
[2020-05-15] MEDS ORDERED: PROCHLORPERAZINE 10 MG/2 ML VIAL. IV PRN ×2 (10:30→17:30)
[2020-05-15 11:00] VITALS: BP 110/57
[2020-05-15] MEDS ORDERED: GLYCOPYRROLATE 1 MG/5 ML VIAL. ONE (12:55)
[2020-05-15] MEDS ORDERED: NEOSTIGMINE METHYLSULFATE 5 MG/5 ML SYRINGE. ONE (12:55)
[2020-05-15] MEDS ORDERED: fentaNYL PF VIAL 100 MCG/2 ML VIAL ONE ×2 (12:55→18:43)
[2020-05-15] MEDS ORDERED: PROPOFOL 10 MG/ML (20ML) VIAL. IV ONE (12:55)
[2020-05-15] MEDS ORDERED: MIDAZOLAM HCL/PF 2 MG/2 ML VIAL. ONE (12:55)
[2020-05-15] MEDS ORDERED: ROCURONIUM 100 MG/10 ML VIAL. ONE (12:55)
[2020-05-15] MEDS ORDERED: KETOROLAC 30 MG/ML VIAL. ONE (12:56)
[2020-05-15] MEDS ORDERED: DEXAMETHASONE SOD PHOS 4 MG/ML VIAL ONE (12:56)
[2020-05-15] MEDS ORDERED: LIDOCAINE 2% PF 5 ML VIAL. ONE ×2 (12:56→18:48)
[2020-05-15] MEDS ORDERED: ONDANSETRON PF 4 MG/2 ML VIAL. ONE (12:56)
[2020-05-15 15:00] VITALS: BP 110/64
--- NOTE | 2020-05-15 16:34 | NUR ---
SW following. Reviewed chart and spoke with RN. Pt from home. Pt COVID pending. Pt on IV Clindamycin. Pt on room air. Plan is for pt to have a laparotomy to rule out ectopic . SW will continue to follow.
[2020-05-15] MEDS ORDERED: ONDANSETRON PF 4 MG/2 ML VIAL. IVP PRN (17:30)
[2020-05-15] MEDS ORDERED: fentaNYL PF VIAL 100 MCG/2 ML VIAL IV PRN ×2 (17:30)
[2020-05-15] MEDS ORDERED: HYDROmorphone 2 MG/ML VIAL IV PRN (17:30)
[2020-05-15] MEDS ORDERED: MORPHINE SULFATE 2 MG/ML VIAL. IV PRN (17:30)
[2020-05-15] MEDS ORDERED: SEVOFLURANE 61 TO 120 MINUTES. IH ONE (18:17)
[2020-05-15] MEDS ORDERED: OXYTOCIN 10 UNIT/ML VIAL. ONE ×2 (18:18)
--- NOTE | 2020-05-15 18:33 | PDOC ---
GENERAL General: Patient braught to OR Pendimg Covid-19 test. VITAL SIGNS Vital Signs/I&O: Vital Signs Date Time Temp Pulse Resp B/P (MAP) Pulse Ox O2 Delivery O2 Flow Rate FiO2 05/15/20 15:00 99.5 117 18 110/64 (79) 98 Room Air 99.5 I & O 05/14/20 05/14/20 05/15/20 15:00 23:00 07:00 Intake Total 2000 ml 50 ml 540 ml Balance 2000 ml 50 ml 540 ml ALLERGIES Allergies: Allergies Coded Allergies Type Severity Reaction Last Updated Verified No Known Drug Allergies 05/15/20 No MEDS Medications: Current Medications Medications (Trade) Dose Ordered Sig/Moira Route PRN Reason Start Time Stop Time Status Last Admin Dose Admin Ketorolac Tromethamine (Toradol 30mg Vial) 30 mg Q8HRS IVP 05/14/20 22:00 05/14/20 22:49 DC 05/14/20 21:47 Ketorolac Tromethamine (Toradol 30mg Vial) 30 mg Q6HRS IVP 05/15/20 06:00 05/20/20 05:59 05/15/20 12:05 Acetaminophen (Tylenol) 650 mg PRN Q6HRS PRN PO FEVER > 100.3'F 05/14/20 22:45 05/14/20 23:19 Morphine Sulfate (Morphine Sulfate) 4 mg PRN Q6HRS PRN IV PAIN 05/15/20 09:00 05/15/20 09:05 Dextrose/Lactated Ringer's 1,000 ml @ 125 mls/hr Q8H IV 05/15/20 09:00 05/15/20 09:05 ASSESSMENT & PLAN A&P Under GA Laparotomy Done. Patient has Acute PID and Pussy Discharge Seen. All the Pus Suctioned out.Right side Tube and Left side Tube Cingested Dilated . No Internal Bleeding Seen. Uterus Enlarged in size. EBL 75cc. Justicifation of Admission Dx: Justifications for Admission: Justification of Admission Dx: Yes Sepsis: Infection WILLIAM GAMA MD May 15, 2020 18:32
--- NOTE | 2020-05-15 18:47 | OP ---
DATE OF SURGERY: PREOPERATIVE DIAGNOSES: Pelvic pain, rule out ectopic , possible pelvic inflammatory disease. POSTOPERATIVE DIAGNOSIS: Acute pelvic inflammatory disease. OPERATION PERFORMED: Laparotomy, dilation and curettage. DESCRIPTION OF PROCEDURE: The patient was taken to the operating room under general anesthesia. She was placed in the dorsal supine position. Davis catheter introduced into bladder for continuous bladder drainage. Lower abdomen was prepped and draped in the usual manner and a Pfannenstiel incision was done. Abdomen opened in layers and visualization of the pelvic structures revealed pussy drainage coming from the right side tube and ovary. Both the tubes and ovaries were enlarged and both the tubes were dilated congested and it is an acute PID picture at this time. The pussy drainage all was drained and abdomen closed in layers using continuous 0 chromic catgut sutures for the peritoneum, the muscle, the fascia, 3-0 plain continuous sutures applied for subcutaneous tissue and 3-0 Vicryl used for subcutaneous sutures. Pressure dressing was given. At this point, the patient was placed in lithotomy position. Weighted speculum was inserted in the posterior vaginal wall. Anterior lip of the cervix held with a tenaculum and a medium-sized curette was used to curette the endometrial cavity. Whatever curettings obtained were subjected for pathological examination, scant curettings obtained. The speculum tenaculum was removed. She did receive 20 units of Pitocin during the time of the D and C. The estimated blood loss was 75 mL. The patient tolerated the surgery well. She was sent to the recovery room in good condition. No complications encountered at the time of the procedure. WILLIAM GAMA MD DR: KARISSA/rebecca JOB#: [id number] / [id number]
[2020-05-15 19:00] VITALS: BP 118/79
[2020-05-15 23:00] VITALS: BP 104/47
[2020-05-15] MEDS: ACETAMINOPHEN 325 MG TABLET. PO PRN (23:34)
[2020-05-16] MEDS: IV DEXTROSE 5%-LACT RINGERS 1,000 ML IV SCH ×3 (01:03→17:03)
[2020-05-16 03:00] VITALS: BP 108/64
[2020-05-16] MEDS: KETOROLAC 30 MG/ML VIAL. IVP SCH ×3 (06:27→18:00)
[2020-05-16] MEDS: CLINDAMYCIN 600MG PREMIX 50 ML IV SCH (06:27)
--- NOTE | 2020-05-16 08:12 | PDOC ---
GENERAL General: Patient looks better. Feeling Better. Abdomen soft. No Fever. VITAL SIGNS Vital Signs/I&O: Vital Signs Date Time Temp Pulse Resp B/P (MAP) Pulse Ox O2 Delivery O2 Flow Rate FiO2 05/16/20 03:00 98.9 100 18 108/64 (79) 98 Room Air 98.9 05/15/20 19:15 2 I & O 05/15/20 05/15/20 05/16/20 15:00 23:00 07:00 Intake Total 0 ml 1550 ml 100 ml Output Total 450 ml 525 ml 325 ml Balance -450 ml 1025 ml -225 ml ALLERGIES Allergies: Allergies Coded Allergies Type Severity Reaction Last Updated Verified No Known Drug Allergies 05/15/20 No MEDS Medications: Current Medications Medications (Trade) Dose Ordered Sig/Moira Route PRN Reason Start Time Stop Time Status Last Admin Dose Admin Morphine Sulfate (Morphine Sulfate) 4 mg PRN Q6HRS PRN IV PAIN 05/15/20 09:00 05/15/20 09:05 Dextrose/Lactated Ringer's 1,000 ml @ 125 mls/hr Q8H IV 05/15/20 09:00 05/15/20 09:05 ASSESSMENT & PLAN A&P Patient Vital signs stable. Explained to Patient about Operative Findings. Patient had Right side Tubo Ovarian Abscess. Waiting for ID Doctors Consult. Justicifation of Admission Dx: Justifications for Admission: Justification of Admission Dx: Yes Sepsis: Infection WILLIAM GAMA MD May 16, 2020 08:12
[2020-05-16] MEDS ORDERED: oxyCODONE/APAP 5/325 1 TAB TABLET PO PRN (08:30)
[2020-05-16] MEDS: DOCUSATE SODIUM 100 MG CAPSULE. PO PRN (08:55)
[2020-05-16] MEDS: oxyCODONE/APAP 5/325 1 TAB TABLET PO PRN ×2 (08:56→20:38)
[2020-05-16 09:00] VITALS: BP 96/57
--- NOTE | 2020-05-16 14:53 | PDOC ---
Infectious Disease Note Vital Sign Vital Signs Vital Signs Date Time Temp Pulse Resp B/P (MAP) Pulse Ox O2 Delivery O2 Flow Rate FiO2 05/16/20 09:00 97.6 89 18 96/57 (70) 99 Room Air 97.6 05/15/20 19:15 2 Labs Micro 05/14/20 Blood Culture - Preliminary, Resulted NO GROWTH AFTER 2 DAYS Objective Assessment Acute PID Complex collection adjacent to the right ovary measuring 5.6 cm x 4.7 cm x 2.8 cm, s/p laparotomy, drainage and dilation and curettage, 05/15 Fever Trichomonas vaginitis, 05/13 Pyuria. UC neg Spontaneous miscarriage Plan Plan of Care Intra-op cultures were not taken Check urine GC/CH Screen for HIV Give dose Rocephin and azithromycin Change clindamycin to po Flagyl Partner will need to be treated Pain management per primary D/w nursing Thank you [id number] Failed to take prescribed meds previously - was given Rocephin 05/14. Will Add Doxy and Cefoxitin. D/c additional Rocephin. Dosed Azithromycin given recent Non compliance and ordered GC/HIV. Has Trich. 2 gm metronidazole should treat but may not be sufficient for PID so will add Flagyl po. Transition to oral hopefully 05/17 Attending Co-Sign Attending Co-Sign The patient was seen and interviewed as well as examined at the bedside. The chart was reviewed. The case was discussed. Agree with the plan of care. ARA GONZALEZ APRN May 16, 2020 14:53 ISAAC TREVINO MD May 16, 2020 17:06
[2020-05-16 15:00] VITALS: BP 102/59
[2020-05-16] MEDS ORDERED: cefTRIAXone IV Push 1 GM VIAL. IVP ONE (15:00)
[2020-05-16] MEDS ORDERED: AZITHROMYCIN 250 MG TABLET. PO ONE (15:00)
--- NOTE | 2020-05-16 16:02 | CONS ---
DATE OF CONSULTATION: 05/16/2020 REFERRING PHYSICIAN: Hemanth Wiggins MD REASON FOR CONSULTATION: Antibiotic management. HISTORY OF PRESENT ILLNESS: This patient is a 24-year-old -[place] female, who was recently seen at [facility] for complaints of abdominal pain and vaginal bleeding. She was apparently told she was miscarriaging and was released home with medication including antibiotics with Macrobid for urinary tract infection. The patient says she developed worsening abdominal pain associated with subjective fever, chills, and difficulty walking. [facility] a [facility]. She said she was given antibiotics, but didn't finish. She was seen here in the Emergency Room at [place] on 05/13. A CT abdomen and pelvis with contrast showed a right adnexal hypodense collection, possible hydrosalpinx. Urinalysis was positive for Trichomonas. She was released home with a prescription for metronidazole and doxycycline; however, the patient said she could not get them filled. She has since been admitted and was taken to surgery yesterday for laparotomy with dilatation and curettage. Both tubes and ovaries were enlarged and purulent drainage from the right tube and ovary was noted and drained. Intraoperative cultures were not taken. She is currently on clindamycin. Today, the patient says she is feeling a little bit better. She is still having abdominal pain but not as intense and worse with movement. She has remained afebrile without chills over the last 24 hours. She has not had a bowel movement or passed gas. She denies nausea or vomiting. She is having some vaginal bleeding. She denies joint pains, rash or dysuria. The patient says she has been with the same partner for the past several months. She says she told him about needing treatment for Trichomonas. She has had Trichomonas in the past but denies other sexually transmitted diseases. She would like to be screened for human immunodeficiency virus. PAST MEDICAL HISTORY: History of Trichomonas, history of vancomycin-resistant enterococci. PAST SURGICAL HISTORY: Laparotomy with dilatation and curettage on 05/15/2020; appendectomy. FAMILY HISTORY: Noncontributory. SOCIAL HISTORY: The patient is single. 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 History of marijuana use. ALLERGIES: No known drug allergies. MEDICATIONS: Reviewed on JAN and include clindamycin and dexamethasone on 05/15. REVIEW OF SYSTEMS: Per HPI; otherwise, all other review of systems are negative. PHYSICAL EXAMINATION: VITAL SIGNS: Temperature is 97.6, blood pressure 96/57, heart rate 89, respiratory rate 18, and pulse oximetry 99% on room air. GENERAL: The patient is propped up in bed, alert, tired appearance. HEENT: Pupils are equally round. Oropharynx is pink and moist. NECK: Supple. LUNGS: Clear to auscultation. HEART: S1 and S2. ABDOMEN: Mildly distended, soft, tender. Abdominal dressing is dry, the incision well approximated, no area redness or drainage. EXTREMITIES: No gross edema or cyanosis. SKIN: Warm to touch. No signs of rash. Tattoos present. NEUROLOGIC: Alert and answering questions appropriately. LABORATORY DATA: From 05/14, WBC 8.7, hemoglobin 10.3, platelets 303,000; creatinine 0.9, BUN 11, potassium 3.1, sodium 137, lactic acid 1.2, total bilirubin 0.6, AST 16, ALT 20, albumin 2.9; COVID-19 PCR not detected. Urinalysis from 05/14 is positive for wbcs, leukocyte esterase, a few bacteria, and Trichomonas. Urine culture is negative. Blood cultures from 05/14 is negative to date. IMAGING: Pelvic ultrasound on 05/14 showed complex collection adjacent to the right ovary measuring 5.6 cm x 4.7 cm x 2.8 cm. Possibility of a right hydrosalpinx raised. ASSESSMENT: 1. Acute pelvic inflammatory disease. 2. Complex collection adjacent to the right ovary. 3. Fever. 4. Trichomonas vaginitis from 05/13. 5. Pyuria with negative urine culture. 6. Spontaneous miscarriage. PLAN: 1. Check urine for chlamydia and gonorrhea and screen for human immunodeficiency virus. 2. Give a dose azithromycin. She already received a dose of Rocephin on 05/14. 3. Change clindamycin to oral metronidazole 500 mg BID for treatment of PID as well as for trichomonas and add doxycycline and Cefoxitin. 4. The patient's partner will need to be treated for Trichomonas, which the patient says she has discussed with him. 5. Pain management per primary. 6. Discussed with Nursing. Thank you Dr. Wiggins for asking us to participate in this patient's care. Should you have further questions or concerns, please call. Patient seen, examined and plan of care implemented by Dr. Isaac Trevino. ISAAC TREVINO MD DR: EVARISTO/rebecca JOB#: [id number] / [id number] CHING
[2020-05-16] MEDS: DOXYCYCLINE HYCLATE 100 MG TABLET PO SCH (17:14)
[2020-05-16] MEDS: IBUPROFEN 200 MG TABLET. PO PRN (17:15)
[2020-05-16 20:35] VITALS: BP 106/64
[2020-05-16] MEDS: metroNIDAZOLE 500 MG TABLET PO SCH (20:37)
[2020-05-16] MEDS: LACTOBACILLUS RHAMNOSUS GG 1 CAPSULE. PO SCH (20:38)
[2020-05-16] MEDS: cefOXitin SODIUM IV Push 2 GM VIAL. IVP SCH (20:40)
[2020-05-17] MEDS: IV DEXTROSE 5%-LACT RINGERS 1,000 ML IV SCH (00:52)
[2020-05-17 01:30] VITALS: BP 105/42
[2020-05-17] MEDS: cefOXitin SODIUM IV Push 2 GM VIAL. IVP SCH ×3 (06:00→14:46)
[2020-05-17] MEDS: KETOROLAC 30 MG/ML VIAL. IVP SCH ×2 (06:00)
[2020-05-17] MEDS: DOCUSATE SODIUM 100 MG CAPSULE. PO PRN ×3 (06:24→09:07)
[2020-05-17] MEDS: oxyCODONE/APAP 5/325 1 TAB TABLET PO PRN (06:25)
[2020-05-17 06:42] VITALS: BP 107/59
[2020-05-17] MEDS: DOXYCYCLINE HYCLATE 100 MG TABLET PO SCH (09:03)
[2020-05-17] MEDS: metroNIDAZOLE 500 MG TABLET PO SCH (09:03)
[2020-05-17] MEDS: LACTOBACILLUS RHAMNOSUS GG 1 CAPSULE. PO SCH (09:03)
--- NOTE | 2020-05-17 09:42 | PDOC ---
GENERAL General: Patient doing ok. No Fever. Feeling better. VITAL SIGNS Vital Signs/I&O: Vital Signs Date Time Temp Pulse Resp B/P (MAP) Pulse Ox O2 Delivery O2 Flow Rate FiO2 05/17/20 07:25 18 Room Air 05/17/20 06:42 98.0 82 107/59 (75) 97 98.0 I & O 05/16/20 05/16/20 05/17/20 15:00 23:00 07:00 Intake Total 300 ml 900 ml 450 ml Output Total 200 ml Balance 100 ml 900 ml 450 ml ALLERGIES Allergies: Allergies Coded Allergies Type Severity Reaction Last Updated Verified No Known Drug Allergies 05/15/20 No MEDS Medications: Current Medications Medications (Trade) Dose Ordered Sig/Moira Route PRN Reason Start Time Stop Time Status Last Admin Dose Admin Ibuprofen (Motrin) 600 mg PRN Q6HRS PRN PO INFLAMMATION 05/16/20 14:30 05/16/20 17:15 Metronidazole (Flagyl) 500 mg Q12HR PO 05/16/20 21:00 05/17/20 09:03 Azithromycin (Zithromax) 1,000 mg 1X ONCE PO 05/16/20 15:00 05/16/20 15:01 DC 05/16/20 17:14 Doxycycline Hyclate (Vibra-Tab) 100 mg BID PO 05/16/20 16:00 05/17/20 09:03 Cefoxitin Sodium (Mefoxin) 2 gm Q8HRS IVP 05/16/20 17:30 05/17/20 06:25 Lactobacillus Rhamnosus (Culturelle) 1 cap BID PO 05/16/20 21:00 05/17/20 09:03 ASSESSMENT & PLAN A&P Vital signs stable. Incision healing ok. Patient doing ok. Will dismiss her today. See her in office in one week. Justicifation of Admission Dx: Justifications for Admission: Justification of Admission Dx: Yes Sepsis: Infection WILLIAM GAMA MD May 17, 2020 09:42
--- NOTE | 2020-05-17 10:39 | PDOC ---
Infectious Disease Note Subjective Subjective Feels sleepy Denies increase abdominal pain No fevers/chills last 48 hrs Eating 50-100% meals Walking to the bathroom ROS ROS as mentioned above Vital Sign Vital Signs Vital Signs Date Time Temp Pulse Resp B/P (MAP) Pulse Ox O2 Delivery O2 Flow Rate FiO2 05/17/20 07:25 18 Room Air 05/17/20 06:42 98.0 82 107/59 (75) 97 98.0 Physical Exam PHYSICAL EXAM GENERAL: Propped up in bed, alert, tired appearance. HEENT: Pupils are equally round. Oropharynx is pink and moist. NECK: Supple. LUNGS: Clear to auscultation. HEART: S1 and S2. ABDOMEN: Mildly distended, soft, tender. Abdominal dressing is dry. EXTREMITIES: No gross edema or cyanosis. SKIN: Warm to touch. No signs of rash. NEUROLOGIC: Alert and answering questions appropriately. Labs Micro 05/14/20 Blood Culture - Preliminary, Resulted NO GROWTH AFTER 2 DAYS Objective Assessment Acute PID Complex collection adjacent to the right ovary measuring 5.6 cm x 4.7 cm x 2.8 cm, s/p laparotomy, drainage and dilation and curettage, 05/15 Fever Trichomonas vaginitis, 05/13 Pyuria. UC neg Spontaneous miscarriage Plan Plan of Care urine for chlamydia and gonorrhea pending HIV screen negative Continue cefoxitin, doxycycline and flagyl Received dose Rocephin (05/14) and azithromycin (05/16) Probiotics Patient's partner will need to be treated for Trichomonas, which the patient says she has discussed with him. Pain management per primary. CBC Discussed with Nursing. Intra-op cultures were not taken Check urine GC/CH Screen for HIV Give dose Rocephin and azithromycin Change clindamycin to po Flagyl Partner will need to be treated Pain management per primary D/w nursing Thank you [phone] Failed to take prescribed meds previously - was given Rocephin 05/14. Will Add Doxy and Cefoxitin. D/c additional Rocephin. Dosed Azithromycin given recent Non compliance and ordered GC/HIV. Has Trich. 2 gm metronidazole should treat but may not be sufficient for PID so will add Flagyl po. CLinically better. Incision is clean. Transition to oral Doxy and Flagyl for 12 days. Rx written. Expressed urgency for adherence Can F/u ID office in 2 weeks [phone] if needed FRONT DESK ADMIN f/u D/w nursing Attending Co-Sign Attending Co-Sign The patient was seen and interviewed as well as examined at the bedside. The chart was reviewed. The case was discussed. Agree with the plan of care. ARA GONZALEZ APRN May 17, 2020 10:39 ISAAC TREVINO MD May 17, 2020 16:28
[2020-05-17 10:48] VITALS: BP 109/67
[2020-05-17 11:03] LABS: BASO % 1 % (0-3); EOS # 0.2 x10^3/uL (0.0-0.7); EOS % 2 % (0-3); HEMATOCRIT 26.7 % (36.0-47.0); LYMPH # 1.3 x10^3/uL (1.0-4.8); LYMPH % 13 % (24-48); MEAN CORPUSCULAR HEMOGLOBIN 27 pg (25-35); MEAN CORPUSCULAR HGB CONC 34 g/dL (31-37); MEAN CORPUSCULAR VOLUME 79 fL (79-100); MONO # 0.5 x10^3/uL (0.0-1.1); MONO % 5 % (0-9); NEUT # 8.3 x10^3/uL (1.8-7.7); NEUT % 80 % (31-73); PLATELET COUNT 303 x10^3/uL (140-400); RED BLOOD COUNT 3.37 x10^6/uL (3.50-5.40); RED CELL DISTRIBUTION WIDTH 13.7 % (11.5-14.5); WHITE BLOOD COUNT 10.3 x10^3/uL (4.0-11.0)
[2020-05-17] MEDS: IBUPROFEN 200 MG TABLET. PO PRN (14:46)
[2020-05-17 17:55] VITALS: BP 113/66
--- NOTE | 2020-05-17 18:15 | NUR ---
Discharge and follow up instructions reviewed and given to pt along with a Rx for doxy and flagyl. Pt verbalized understanding and denied questions or complaints at time of discharge. Pt taken out of the hospital per W/C to her grandma who was waiting in the car.
--- NOTE | 2020-05-20 17:06 | PATHOLOGY ---
[facility] Accession Number: [id number] . 01 Material submitted: . endometrium - ENDOMETRIAL CURETTINGS . 01 Clinical history: . Abd. pain . 02 Diagnosis: Endometrial curettings: - Chronic endometritis. (M:alex; 05/20/2020) S 05/20/2020 1349 Local . 02 Comment: There is no evidence of hyperplasia, atypia, or malignancy. (JPM:alex; 05/20/2020) . 02 Electronically signed: . Ernst Lawson MD, Pathologist NPI- [id number] . 01 Gross description: . The specimen is received in formalin, labeled "Nguyen, Antwoinette, endometrial curettings" and consists of an abundance of blood clot admixed with small fragments of zavala tissue measuring 5.3 x 3.2 x 1.1 cm in aggregate. Lithographic Artist sections are submitted in A1-A4 with the tissue fragments in A1. Approximately 50% of the specimen is submitted. ([facility]; 05/16/2020) JFQ/JFQ 05/16/2020 1601 Local . 02 Pathologist provided ICD-10: N71.9 . 02 CPT . 969988 Specimen Comment: A courtesy copy of this report has been sent to [phone] Specimen Comment: Report sent to Performed at: 01 [facility] [address] [facility] [address], [place] [id number] MD Brandyn Garcia MD Phone: [phone] Performed at: 02 [facility] [address] [place], [place] [id number] MD Ernst Lawson MD Phone: [phone]
--- NOTE | 2020-05-22 10:04 | HP ---
ADMIT DATE: 05/14/2020 CHIEF COMPLAINT AND HISTORY OF PRESENT ILLNESS: A 24-year-old lady who is 2, para 1, came into the hospital because of pelvic pain, headaches and she does give a history of having had miscarriage 05/01/2020, which she is not sure of and she had bleeding 2 days she says and she is having acute lower abdominal pain on the right side, which is not relieved by medications at this time and no history of any vaginal bleeding at this time. The patient is admitted to the hospital because of acute pelvic pain, also has a positive test to rule out ectopic and further treatment. PHYSICAL EXAMINATION: Reveals: VITAL SIGNS: Being stable. HEAD, EYES, NOSE, THROAT: Within normal limits. GENERAL: The patient is in acute pain. ABDOMEN: Feels soft, but quite a bit of tenderness all over the abdomen, more to the right lower quadrant and the patient could not tolerate palpation. PELVIC: Reveals external genitalia being normal. No vaginal bleeding noted. On bimanual exam, cervix feels closed and uterus feels bulky. Again acute tenderness in the right lower quadrant and also tenderness on the uterus as well. EXTREMITIES: No edema of feet. IMPRESSION: Acute right lower quadrant pain and history of miscarriage, rule out ectopic , possible pelvic inflammatory disease, possible endometritis. PLAN: Admission to the hospital, IV fluids and we will do a laparotomy to confirm no ectopic and then proceed with the treatment. WILLIAM GAMA MD DR: KARISSA/rebecca JOB#: [id number] / [id number]
== END 2020-05-17 18:15 | disposition home or self-care (01) | DRG 779 ==
LOC: ER 11:33 → ED HOLD 16:05 → 3 NORTH 17:23 → 6 SOUTH 20:05 → 3 NORTH 05-16 06:10
PROVIDERS: ADMIT Obstetrics & Gynecology; ATTEND Obstetrics & Gynecology
PROC: 0UJ80ZZ Inspection of Fallopian Tube, Open Approach (ICD-10-PCS; 2020-05-15)
PROC: 0UJ30ZZ Inspection of Ovary, Open Approach (ICD-10-PCS; 2020-05-15)
PROC: 0UDB7ZZ Extraction of Endometrium, Via Natural or Artificial Opening (ICD-10-PCS; principal; 2020-05-15 16:30)
DX: O03.5 Genital tract and pelvic infection following complete or unspecified spontaneous abortion (principal); A59.01 Trichomonal vulvovaginitis; F17.200 Nicotine dependence, unspecified, uncomplicated; Z20.828 Contact with and (suspected) exposure to other viral communicable diseases; Z90.49 Acquired absence of other specified parts of digestive tract
CPT/HCPCS: 36415; 76830; 76856; 80053; 81001; 81025; 83605; 84702; 85007; 85025; 86703; 87040; 87086; 87491; 87591; 88305; 93005; 96361; 96374; 96375; 99285; A7015; J0694; J0696; J1100; J1885; J2250; J2270; J2405; J2590; J2704; J2710; J3010; J3490; J7030; J7121; A4461; G0378; U0003-CS